=== PATIENT | male | born 1950 | race Caucasian/White ===

== ENCOUNTER 2020-05-05 17:27 | Emergency (ER) | payer OTHER ==
[~2020-05-05] VITALS: Ht 180.3 cm; Wt 81.7 kg
[2020-05-05 17:41] VITALS: BP 176/93
== END 2020-05-05 19:50 | disposition home or self-care (01) ==
LOC: ER 17:27
DX: M54.2 Cervicalgia (principal); E89.811 Postprocedural hemorrhage of an endocrine system organ or structure following other procedure